=== PATIENT | female | born 1980 | race Caucasian/White ===

== ENCOUNTER 2020-12-05 17:44 | Inpatient (IN) | payer BC, MEDICAID, SELFPAY ==
[2020-12-05] VITALS (19 sets, daily range): BP systolic 145–188; BP diastolic 77–123; PULSE 76–88; RESP 15; BMI 35.4
[2020-12-05] MEDS: dextrose 5%-lactated ringers 1,000 ML 125 ML IV (18:29)
[2020-12-05] MEDS: lidocaine 2% INJ 20 mL INJECTION (18:30)
[2020-12-05] MEDS: oxytocin 30 UNIT/500 ML BAG 600 UNIT IV (18:30)
--- NOTE | 2020-12-05 18:35 | PM.DELIVERY ---
Delivery Note: Date of delivery: December 05, 2020 Pre-delivery diagnoses: Term Poor care Op report anesthesia: General Delivering Physician: Tavo Noriega MD Estimated blood loss (mL): 300 Delivery: The patient was noted to be complete and pushing, so was placed in the dorsal lithotomy position, prepped and draped in the usual sterile fashion for a vaginal delivery. Pt. Noted to have epidural anesthesia. At 1811 the patient delivered a viable term female weighing 3630 g with scores of 7 and 8 at one and five minutes, respectively. The vertex was delivered spontaneously over an intact perineum. The patient was asked to push and the head delivered spontaneously in the JOHNY position, over an intact perineum. A nuchal cord was checked and none noted. The anterior shoulder delivered easily and the posterior shoulder followed. The remainder of the was easily delivered and the oropharynx and nasopharynx was bulb suctioned. The infant was noted to have spontaneous cry and spontaneous movement of all four extremities. The cord was clamped x 2 and cut and noted to have 2 arteries and one vein. The was passed to the mother's abdomen where nursing and scrip clerk personnel were in attendance. Cord blood sample was then obtained. The placenta delivered intact spontaneously and the uterus was explored. 20 units of Pitocin was placed in the IV bag to firm the uterus. Examination of the cervix and vaginal vault did not reveal any lacerations. A vaginal pack was then placed. Examination of the perineum showed no lacerations. The vaginal pack was then removed. The patient tolerated this procedure well, and recovered in L&D with her in their L&D room. All sponge and needle counts were correct. 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
[2020-12-05 19:04] LABS: Amphetamines Screen Urine Negative (Negative); Barbiturates Screen Urine Negative (Negative); Benzodiazepines Screen Urine Negative (Negative); Cocaine Screen Urine Negative (Negative); Opiate Screen Urine Positive (Negative); PCP Screen Urine Negative (Negative); THC Screen Urine Negative (Negative)
--- NOTE | 2020-12-05 20:45 | PC.NURSE ---
Dr. Noriega notified of critical blood pressures. Results of labs ordered MD notified by this nurse. Orders received to start Mag IV, 6 mg bolus, 1g/hr. Orders read back and confirmed with MD. Notified patient of plan of care. Patient states she does not want to accept medication. This nurse educated her of risks in regards to blood pressure and lab results. Patient states she wishes to not receive medication multiple times to this nurse. This nurse notified Dr. Noriega of patient refusing medication. MD to room to speak with patient. Patient wishes to wait 1 hour for blood pressure readings, and stated she would consider medication after [address] Noriega gave orders to this nurse for hypertensive protocol, allow patient to eat during the one hour. Orders read back and confirmed with MD. RUPESH ALFARO
[2020-12-05 20:55] LABS: Alanine Aminotransferase 21 U/L (0-33); Albumin Level 3.3 g/dL (3.5-5.2); Alkaline Phosphatase 187 IU/L (35-105); Aspartate Amino Transferase 33 U/L (0-32); Blood Urea Nitrogen 8 mg/dL (6-20); Carbon Dioxide 22 mmol/L (22-29); Chloride 98 mmol/L (98-107); Globulin 3.1 g/dL (1.3-4.6); Glomerular Filtration Rate 93.6 mL/min (90-130); Glucose 127 mg/dL (65-115); Osmolality Calculated 272 mOsm/kg (285-295); Sodium 131 mmol/L (136-145); Total Bilirubin 0.4 mg/dL (0.15-1.2); Total Protein 6.4 g/dL (6.6-8.7); Uric Acid 6.9 mg/dL (2.4-5.7)
[2020-12-05 20:56] LABS: Anion Gap 14.9 (5-19); Potassium 3.9 mmol/L (3.5-5.1)
[2020-12-05 21:00] LABS: Bilirubin Urine 1+ (Negative); Blood Urine Trace (Negative); Glucose Urine UA Norm (Normal); Ketones Urine 3+ (Negative); Leukocyte Esterase Urine Negative (Negative); Nitrate Urine Negative (Negative); Protein Urine Neg (Negative); Specific Gravity, Urine 1.025 (1.005-1.030); Urine Appearance Clear (CLEAR); Urine Color Yellow (Yellow); Urobilinogen Urine Norm (Negative); pH Urine 5 (5-7)
[2020-12-05 21:01] LABS: Add Urine Microscopic? YES
[2020-12-05 21:02] LABS: Add Urine Culture? No; Bacteria Urine TRACE /hpf; RBC Urine 0-4 /hpf (0-2); Squamous Epithelial Cell Urine 0-4 /hpf (0-5)
[2020-12-05 21:08] LABS: Urine Creatinine 152 mg/dL (28-217)
[2020-12-05 21:09] LABS: UPRO/UCREAT Ratio 0.14 mg/mg CR; Urine Protein Random 22 mg/dL
--- NOTE | 2020-12-05 21:45 | PC.NURSE ---
Patient states at one hour carmen to this nurse from labetalol dose that she does not wish to proceed with Magnesium IV medication. notified. Orders received to continue with hypertensive crisis protocol throughout night. RUPESH RN
[2020-12-05] MEDS: labetalol 5 mg/mL SDV 20mL 20 MG IVP (21:56)
[2020-12-05 22:53] LABS: Basophils # 0.1 10^3/uL (0.0-0.1); Basophils % 0.3 %; Eosinophils # 0.1 10^3/uL (0.0-0.8); Eosinophils % 0.5 %; Hematocrit 37.8 % (37.0-47.0); Hemoglobin 12.1 g/dL (11.5-15.3); Lymphocytes # 1.2 10^3/uL (0.8-4.8); Lymphocytes % 7.6 %; Mean Corpuscular Volume 93.6 fL (81-99); Mean Platelet Volume 10.2 fL (7.4-10.4); Monocytes # 0.5 10^3/uL (0.2-0.9); Monocytes % 3.6 %; Neutrophils # 13.29 10^3/uL (1.8-7.7); Neutrophils % 87.4 %; Nucleated Red Blood Cells % 0 %; Platelet Count 479 10^3/cmm (130-400); Red Blood Count 4.04 10^6/uL (4.1-5.3); Red Cell Distribution Width 15.2 % (12.1-15.1); White Blood Count 15.2 10^3/uL (4.0-10.0)
[2020-12-06] VITALS (12 sets, daily range): BP systolic 104–175; BP diastolic 58–90; PULSE 68–90; TEMP 36.9
[2020-12-06] MEDS: labetalol 5 mg/mL SDV 20mL 20 MG IVP (02:21)
[2020-12-06] MEDS: ibuprofen 800 mg tablet PO ×2 (02:36→10:17)
[2020-12-06 06:26] LABS: Mean Corpuscular HGB Conc 32.3 g/dL (30.0-36.0); Mean Corpuscular Hemoglobin 29.5 pg (28.0-34.0); Mean Corpuscular Volume 91.4 fL (81-99); Mean Platelet Volume 9.9 fL (7.4-10.4); Platelet Count 364 10^3/cmm (130-400); Red Blood Count 3.39 10^6/uL (4.1-5.3); Red Cell Distribution Width 14.9 % (12.1-15.1); White Blood Count 9.8 10^3/uL (4.0-10.0)
[2020-12-06] MEDS: prenatal vitamin Capsule 1 CAP PO (10:17)
[2020-12-06] MEDS: docusate sodium 100 mg Capsule PO (10:17)
--- NOTE | 2020-12-06 11:13 | P.PN_ITS ---
Subjective Subjective: Interval history: Ms. Diehl is status post spontaneous vaginal delivery day 1. Refers feeling better. Vitals/I&O/Wt Last Vital Signs Temp 98.4 F 12/06/20 10:24 Pulse 75 12/06/20 10:25 Resp 15 12/05/20 20:59 BP 122/77 12/06/20 10:25 12/05/20 12/06/20 12/06/20 22:59 06:59 14:59 Intake Total 1500 / 1500 Output Total 400 / 400 Balance -400 / -400 1500 / 1100 Weight last 48 hrs Weight 108.862 kg Physical Exam Narrative: EXAM NARRATIVE: GA; alert and oriented x 3 HEENT: normal Breasts: engorged Nipples - skin intact Lungs; clear to auscultation Heart: regular rhythm, no murmurs. Abd: Appropriately tender. BS+. Uterine fundus below umbilicus. No Fundal Tenderness. Perineum: normal lochia. Extremities: no edema, no cyanosis, no tenderness. Data : 12/06/20 06:19 12/05/20 20:17 A&P Assessment and plan (1) Pre-eclampsia, : Ms. Diehl 40-year-old female status post spontaneous vaginal delivery. Noted to have elevated blood pressure and diagnosed with preeclampsia. Magnesium sulfate for seizure prophylaxis have been recommended and prescribed but the patient refused treatment. Continue to monitor blood pressure and treat blood pressure accordingly per protocol. 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
--- NOTE | 2020-12-06 12:45 | PC.NURSE ---
DFS here in room talking with mother and grandmother .
--- NOTE | 2020-12-06 14:10 | PC.NURSE ---
Sly with [facility] DFS here with 33 form and will be taking baby into custody at this time
--- NOTE | 2020-12-06 14:35 | PC.NURSE ---
Pt states that she is leaving with or without discharge orders. This nurse made pt aware that she would have to leave AMA and pt verbalized understanding.
--- NOTE | 2020-12-06 14:40 | PC.NURSE ---
AMA consent signed with pt at this time. Risk discussed with pt regarding pre eclampsia and the importance of seeking medical attention with headache, increased swelling, blurred vision, ringing in the ears as this can lead seizures, stroke or . Pt verbalized understanding.
== END 2020-12-06 14:40 | disposition home or self-care (01) | DRG 807 ==
LOC: OPOB 17:45 → OBGYN 17:45
PROVIDERS: Admitting Provider Obstetrics & Gynecology; Visit Provider Obstetrics & Gynecology
DX: O14.94 Unspecified pre-eclampsia, complicating childbirth (principal); Z37.0 Single live birth; Z3A.38 38 weeks gestation of pregnancy; Z53.29 Procedure and treatment not carried out because of patient's decision for other reasons
CPT/HCPCS: 36415; 59025; 59409; 80053; 80306; 80361; 81001; 82570; 84156; 84550; 85025; 85027; 86850; 86900; 99211; J3490